=== PATIENT | male | born 1985 | race Caucasian/White ===

== ENCOUNTER 2022-12-17 03:35 | Emergency (ER) | payer BC ==
[~2022-12-17] VITALS: Ht 167.6 cm; Wt 59.9 kg
[2022-12-17 03:46] VITALS: BP 122/90; PULSE 65; RESP 17; TEMP 97.8; O2SAT 99
--- NOTE | 2022-12-17 03:50 | NUR ---
TO LOBBY A/W BED AMBULATORY
--- NOTE | 2022-12-17 03:53 | NUR ---
SEEN AND EXAMINED BY SHIREEN
[2022-12-17 06:49] VITALS: BP 129/93; PULSE 68; RESP 17; TEMP 97.8; O2SAT 99
--- NOTE | 2022-12-17 06:49 | NUR ---
Patient discharged with v/s stable. Written and verbal after care instructions given and explained. Patient verbalized understanding. Ambulatory with steady gait. ID band removed. All questions addressed prior to discharge. Advised to follow up with PMD.
== END 2022-12-17 06:49 | disposition home or self-care (01) ==
LOC: MED 03:35
DX: Z01.812 Encounter for preprocedural laboratory examination (principal)
CPT/HCPCS: 86592; 87491; 99283